=== PATIENT | female | born 1970 ===

== ENCOUNTER 2017-09-06 06:26 | Day surgery (SDC) | payer MEDICAID ==
[2017-09-05 11:54] VITALS: BMI 26.9
[2017-09-06 07:01] VITALS: O2SAT 100
[2017-09-06] MEDS ORDERED: Propofol 10 mg/ml Inj (20 ML) ONE ×2 (08:50)
--- NOTE | 2017-09-06 09:01 | CP.SDSHP ---
Same Day Surgery H & P - History Proposed Procedure: EGD Pre-Op Diagnosis: epigastric pain - Previous Medical/Surgical History Comments: none Previous Surgical History: hysterectomy. - Allergies Allergies: Allergies No Known Allergies Allergy (Verified 03/02/15 10:12) - Current Medications Current Medications: none - Physical Exam General Appearance: wdwn nad Vital Signs: Vital Signs 09/06/17 06:54 Temperature 97.5 F L Pulse Rate 89 Respiratory 18 Rate Blood Pressure 124/93 H O2 Sat by Pulse 100 Oximetry Mental Status: Alert & Oriented x3 Heart: WNL Lungs: WNL GI: WNL - {Optional Preform as Required} Abdomen: WNL - Impression Impression: abdominal pain Pt. Evaluated Today:Candidate for Anesthesia & Procedure: Yes - Date & Time Date: 09/06/17 Time: 09:00 Short Stay Discharge - Short Stay Discharge Admitting Diagnosis/Reason for Visit: EPIGASTRIC PAIN Disposition: HOME/ ROUTINE
[2017-09-06 10:14] VITALS: BP 113/79; PULSE 61; RESP 14; TEMP 97.1
== END 2017-09-06 10:11 | disposition home or self-care (01) ==
LOC: C.ENDO 06:26
PROVIDERS: ATTEND Internal Medicine Gastroenterology
DX: R10.13 Epigastric pain (principal)
CPT/HCPCS: 43239; 88305; J2001; J2704

== ENCOUNTER 2018-04-05 15:39 | Outpatient (CLI) | payer MEDICAID | END 2018-04-05 15:40 | disposition home or self-care (01) | LOC: C.MAMMO 15:39 | DX: Z12.31 Encounter for screening mammogram for malignant neoplasm of breast (principal) ==

== ENCOUNTER 2018-04-07 23:23 | Emergency (ER) | payer MEDICAID ==
[2018-04-07 23:24] VITALS: BMI 26.9
[2018-04-07 23:40] VITALS: BP 142/88; PULSE 88; RESP 22; TEMP 98.5; O2SAT 100
--- NOTE | 2018-04-08 | C.PDOC ---
History Of Present Illness 47 year old female presents to the ED c/o right earache. Patient reports that while cleaning her ears with Q-tips, patient thinks a piece of cotton got stuck on her right ear. Patient denies fever, chills, headache, rash, injury, fall, trauma. Time Seen by Provider: 04/07/18 23:56 Chief Complaint (Nursing): ENT Problem History Per: Patient History/Exam Limitations: None Onset/Duration Of Symptoms: Hrs Current Symptoms Are (Timing): Still Present Quality (Ear): Foreign Body Anticoagulant/Antiplatlet Use?: No Recent Aspirin Use: No Past Medical History Reviewed: Historical Data, Nursing Documentation, Vital Signs Vital Signs: Last Vital Signs Temp 98.5 F 04/07/18 23:29 Pulse 88 04/07/18 23:29 Resp 22 04/07/18 23:29 BP 142/88 04/07/18 23:29 Pulse Ox 100 04/07/18 23:29 - Medical History PMH: No Chronic Diseases Denies: Chronic Kidney Disease Surgical History: Endoscopy - [facility] Procedures RESECTION OF BILATERAL FALLOPIAN TUBES, OPEN APPROACH (03/06/15) RESECTION OF CERVIX, OPEN APPROACH (03/06/15) RESECTION OF UTERUS, OPEN APPROACH (03/06/15) Family History: States: Unknown Family Hx - Social History Hx Alcohol Use: No Hx Substance Use: No - Immunization History Hx Tetanus Toxoid Vaccination: No Hx Influenza Vaccination: No Hx Pneumococcal Vaccination: No Review Of Systems Constitutional: Negative for: Fever, Chills ENT: Positive for: Ear Pain. Negative for: Ear Discharge, Nose Discharge, Nose Congestion Respiratory: Negative for: Cough, Shortness of Breath Gastrointestinal: Negative for: Vomiting, Diarrhea Skin: Negative for: Rash Neurological: Negative for: Headache Physical Exam - Physical Exam Appears: Non-toxic, No Acute Distress Skin: Normal Color, Warm, Dry Head: Atraumatic, Normacephalic Eye(s): bilateral: Normal Inspection Ear(s): Bilateral: Normal (right TM small contusion area, no active bleeding, no FB seen) Oral Mucosa: Moist Neck: Normal ROM, Supple Extremity: Normal ROM Neurological/Psych: Oriented x3, Normal Speech, Normal Cognition Gait: Steady ED Course And Treatment O2 Sat by Pulse Oximetry: 100 (ON RA) Pulse Ox Interpretation: Normal Progress Note: Patient was reassured, advised to not use Q-tips to clean deep in her ears. Disposition - Disposition Disposition: HOME/ ROUTINE Disposition Time: 23:57 Condition: STABLE Additional Instructions: Follow up with your PMD as needed. Return to ED if feel worse. Instructions: Removing Objects Stuck in the Ear Forms: [employer] (Salvadorean) - Clinical Impression Clinical Impression: Contusion of tympanic membrane - PA / SENIOR CONTROLS ANALYST / Resident Statement MD/DO has reviewed & agrees with the documentation as recorded. - Scribe Statement The provider has reviewed the documentation as recorded by the Scribe Raymond Santiago All medical record entries made by the Scribe were at my direction and personally dictated by me. I have reviewed the chart and agree that the record accurately reflects my personal performance of the history, physical exam, medical decision making, and the department course for this patient. I have also personally directed, reviewed, and agree with the discharge instructions and disposition.
== END 2018-04-08 00:04 | disposition home or self-care (01) ==
LOC: C.ER 23:23
DX: S00.431A Contusion of right ear, initial encounter (principal); X58.XXXA Exposure to other specified factors, initial encounter